=== PATIENT | female | born 1995 | race Caucasian/White ===

== ENCOUNTER 2017-06-01 21:23 | Emergency (ER) | payer MEDICAID, OTHER ==
[~2017-06-01] VITALS: Ht 157.5 cm; Wt 73.9 kg
[~2017-06-01 21:23] MED LIST: FERR325E14 PO; IBUP-974 PO; PREN-385 PO
[2017-06-01 21:32] VITALS: BP 126/71
--- NOTE | 2017-06-01 22:02 | NUR ---
PATIENT TO ER BED 6
--- NOTE | 2017-06-01 22:06 | NUR ---
PATIENT PRESENTS TO ED WITH mid upper back pain starting at 1600. Was seen at [facility] earlier and discharged; given Zofrant. 12 weeks; G-2 P-1. C/O urinary burning PT SKIN IS PINK/WARM/DRY; AAOX4 WITH EVEN AND STEADY GAIT; LUNGS CLEAR BL; HR EVEN AND REGULAR; PT DENIES ANY FEVER, CP, SOB, OR COUGH AT THIS TIME; PATIENT STATES PAIN OF 8/10 AT THIS TIME; VSS; PATIENT POSITIONED FOR COMFORT; HOB ELEVATED; BEDRAILS UP X2; BED DOWN. ER MD MADE AWARE OF PT STATUS.
[2017-06-01 22:20] LABS: APPEARANCE,URINE SL CLOUDY (CLEAR); BILIRUBIN,URINE NEGATIVE (NEGATIVE); BLOOD, URINE NEGATIVE (NEGATIVE); COLOR,URINE YELLOW (YELLOW); LEUKOCYTE ESTERASE ,URINE 1+ (NEGATIVE); NITRITE, URINE POSITIVE (NEGATIVE); UGLUCOSE NEGATIVE (NEGATIVE)
[2017-06-01 22:31] LABS: RBC,URINE 0-5 (RARE) /HPF (0-5)
[2017-06-01 23:02] VITALS: BP 126/71
== END 2017-06-01 23:02 | disposition home or self-care (01) ==
LOC: MED 21:23
DX: O23.41 Unspecified infection of urinary tract in pregnancy, first trimester (principal); Z3A.12 12 weeks gestation of pregnancy; Z79.899 Other long term (current) drug therapy
CPT/HCPCS: 81001; 81025; 87086; 99284

== ENCOUNTER 2017-09-09 17:35 | Observation (INO) | payer OTHER ==
[~2017-09-09] VITALS: Ht 157.5 cm; Wt 68.0 kg
[2017-09-09 17:58] VITALS: BP 109/65
== END 2017-09-09 20:35 | disposition home or self-care (01) ==
LOC: MLD 17:35
PROVIDERS: ADMIT Obstetrics & Gynecology; ATTEND Obstetrics & Gynecology
DX: O26.892 Other specified pregnancy related conditions, second trimester (principal); M54.9 Dorsalgia, unspecified; R19.00 Intra-abdominal and pelvic swelling, mass and lump, unspecified site; Z3A.26 26 weeks gestation of pregnancy
CPT/HCPCS: 76805; G0378; Q0092

== ENCOUNTER 2017-10-01 15:05 | Observation (INO) | payer OTHER ==
[~2017-10-01] VITALS: Ht 160 cm; Wt 73.5 kg
[~2017-10-01 15:05] MED LIST changes: -IBUP-974 PO
[2017-10-01 15:26] VITALS: BP 116/65
== END 2017-10-01 16:58 | disposition home or self-care (01) ==
LOC: MLD 15:05
PROVIDERS: ADMIT Obstetrics & Gynecology; ATTEND Obstetrics & Gynecology
DX: O36.8130 Decreased fetal movements, third trimester, not applicable or unspecified (principal); O62.9 Abnormality of forces of labor, unspecified; Z3A.29 29 weeks gestation of pregnancy
CPT/HCPCS: 59025; 76819; 81000; G0378; Q0092

== ENCOUNTER 2017-12-05 14:37 | Inpatient (IN) | payer OTHER ==
[~2017-12-05] VITALS: Ht 157.5 cm; Wt 72.6 kg
[2017-12-05 16:07] VITALS: BP 111/79
[2017-12-05] MEDS ORDERED: OXYTOCIN 20 UNITS in LACTATED RINGERS 1,000 ML IV SCH ×2 (17:59→20:10)
[2017-12-05] MEDS ORDERED: IBUPROFEN 800 MG TAB PO PRN (18:00)
[2017-12-05] MEDS ORDERED: CARBOPROST 250 MCG/ML AMP IM PRN (18:00)
[2017-12-05] MEDS ORDERED: METHYLERGONOVINE 0.2 MG/ML AMP IM PRN (18:00)
[2017-12-05] MEDS ORDERED: PROMETHAZINE 25 MG/ML VIAL IVP PRN (18:00)
[2017-12-05] MEDS ORDERED: MISOPROSTOL 25 MCG TAB VG SCH (18:00)
[2017-12-05] MEDS ORDERED: NALBUPHINE 10 MG/ML AMP IVP PRN (18:00)
[2017-12-05] MEDS ORDERED: OXYTOCIN 10 UNITS/ML VIAL IM ONE (18:00)
[2017-12-05 19:02] LABS: BASOPHILS # (AUTO) 0.1 K/uL (0.00-0.22); BASOPHILS % (AUTO) 0.9 % (0.0-2.0); EOSINOPHILS % (AUTO) 0.3 % (0.0-4.0); HEMATOCRIT 30.3 % (36-48); LYMPHOCYTES # (AUTO) 1.5 K/uL (2.5-16.5); LYMPHOCYTES % (AUTO) 25.2 % (20.5-51.1); MEAN CORPUSCULAR HEMOGLOBIN 21 pg (27-31); MEAN CORPUSCULAR HGB CONC 30 g/dL (33-37); MEAN CORPUSCULAR VOLUME 71.7 fL (80-94); MONOCYTES # (AUTO) 0.3 K/uL (0.8-1.0); MONOCYTES % (AUTO) 4.8 % (1.7-9.3); NEUTROPHILS % (AUTO) 68.8 % (42.2-75.2); PLATELET COUNT (AUTO) 198 K/uL (140-450); RED BLOOD CELL COUNT(AUTO) 4.22 MIL/uL (4.20-5.40); RED CELL DISTRIBUTION WIDTH 13.5 % (11.6-13.7); WHITE BLOOD COUNT (AUTO) 5.9 K/uL (4.5-11.0)
[2017-12-05 19:10] LABS: BILIRUBIN,URINE NEGATIVE (NEGATIVE); BLOOD, URINE TRACE-I (NEGATIVE); LEUKOCYTE ESTERASE ,URINE 3+ (NEGATIVE); NITRITE, URINE NEGATIVE (NEGATIVE); UGLUCOSE NEGATIVE (NEGATIVE)
[2017-12-05 19:15] LABS: ANION GAP 15.6 (8-16); CARBON DIOXIDE 22.2 mmol/L (21-32); CREATININE 0.6 mg/dL (0.6-1.3); POTASSIUM 3.8 mmol/L (3.5-5.1)
[2017-12-05 19:22] LABS: ALBUMIN 2.5 g/dL (3.4-5.0); TOTAL BILIRUBIN 0.3 mg/dL (0.0-1.0)
[2017-12-05 19:40] LABS: APPEARANCE,URINE CLOUDY (CLEAR); COLOR,URINE YELLOW (YELLOW)
[2017-12-05 19:47] LABS: RBC,URINE 3-10 (FEW) /HPF (0-5); WBC,URINE 16-25 (MOD) /HPF (0-5)
[2017-12-05] MEDS ORDERED: OXYTOCIN 10 UNITS/ML VIAL IM PRN (20:10)
[2017-12-05] MEDS: LACTATED RINGERS 1,000 ML IV SCH (23:52)
[2017-12-06] MEDS ORDERED: OXYTOCIN 10 UNITS/ML VIAL ONE (01:52)
[2017-12-06] MEDS: LACTATED RINGERS 1,000 ML IV SCH ×2 (06:43→11:03)
[2017-12-06] MEDS ORDERED: BUPIVACAINE 0.125%/NS PREMIX 250 ML EPI SCH (10:15)
--- NOTE | 2017-12-06 11:17 | NUR ---
PATIENT HAS BEEN SCREENED AND CATEGORIZED LOW NUTRITION RISK. PATIENT WILL BE SEEN WITHIN 7 DAYS OF ADMISSION. 12/12/[address]
[2017-12-06] MEDS ORDERED: AMPICILLIN 2,000 MG in NACL 0.9% 100 ML IV SCH (15:05)
[2017-12-06] MEDS ORDERED: AMPICILLIN 2,000 MG VIAL ONE (15:53)
[2017-12-06] MEDS ORDERED: CARBOPROST 250 MCG/ML AMP IM ONE (18:03)
[2017-12-06] MEDS ORDERED: METHYLERGONOVINE 0.2 MG/ML AMP ONE (18:03)
[2017-12-06] MEDS ORDERED: OXYTOCIN 10 UNITS/ML VIAL IM PRN (18:20)
[2017-12-06] MEDS ORDERED: MEASLES, MUMPS, AND RUBELLA 1 VIAL SQVAC PRN (18:20)
[2017-12-06] MEDS ORDERED: METHYLERGONOVINE 0.2 MG/ML AMP IM PRN (18:20)
[2017-12-06] MEDS ORDERED: BENZOCAINE/MENTHOL 20%-0.5% 60 GM CAN TP PRN (18:20)
[2017-12-06] MEDS ORDERED: TEMAZEPAM 15 MG CAP PO PRN (18:20)
[2017-12-06] MEDS ORDERED: HYDROcodone/APAP 5/325 MG 1 TAB TAB PO PRN (18:20)
[2017-12-06] MEDS ORDERED: SODIUM PHOSPHATE 118 ML ENEM RC PRN (18:20)
[2017-12-06] MEDS ORDERED: oxyCODONE/APAP 5/325 MG 1 TAB TAB PO PRN (18:20)
[2017-12-06] MEDS ORDERED: METHYLERGONOVINE 0.2 MG TAB PO PRN (18:20)
[2017-12-06] MEDS ORDERED: MISOPROSTOL 100 MCG TAB ONE (18:29)
[2017-12-06] MEDS ORDERED: MISOPROSTOL 100 MCG TAB RC SCH (18:30)
[2017-12-06] MEDS ORDERED: IBUPROFEN 800 MG TAB ONE (19:42)
[2017-12-06] MEDS ORDERED: PROMETHAZINE 25 MG/ML VIAL ONE (19:42)
[2017-12-06] MEDS ORDERED: DOCUSATE SOD/SENNA 50/8.6 MG 1 TAB PO SCH (21:00)
[2017-12-06 21:09] LABS: BASOPHILS # (AUTO) 0.1 K/uL (0.00-0.22); BASOPHILS % (AUTO) 0.5 % (0.0-2.0); EOSINOPHILS # (AUTO) 0.1 K/uL (0-0.4); EOSINOPHILS % (AUTO) 0.6 % (0.0-4.0); HEMATOCRIT 28.2 % (36-48); HEMOGLOBIN 8.6 g/dL (12.0-16.0); LYMPHOCYTES # (AUTO) 0.9 K/uL (2.5-16.5); LYMPHOCYTES % (AUTO) 5.8 % (20.5-51.1); MEAN CORPUSCULAR HEMOGLOBIN 22 pg (27-31); MEAN CORPUSCULAR HGB CONC 31 g/dL (33-37); MEAN CORPUSCULAR VOLUME 71.5 fL (80-94); MONOCYTES # (AUTO) 0.3 K/uL (0.8-1.0); NEUTROPHILS # (AUTO) 13.3 K/uL (1.8-7.7); NEUTROPHILS % (AUTO) 91.1 % (42.2-75.2); PLATELET COUNT (AUTO) 179 K/uL (140-450); RED BLOOD CELL COUNT(AUTO) 3.95 MIL/uL (4.20-5.40); RED CELL DISTRIBUTION WIDTH 13.4 % (11.6-13.7); WHITE BLOOD COUNT (AUTO) 14.7 K/uL (4.5-11.0)
[2017-12-06] MEDS ORDERED: DIPHENOXYLATE /ATROPINE 2.5 MG TAB PO PRN ×2 (23:50→23:55)
[2017-12-07] MEDS ORDERED: DIPHENOXYLATE /ATROPINE 2.5 MG TAB PO SCH
[2017-12-07 06:34] LABS: HEMATOCRIT 21.3 % (36-48)
[2017-12-07 08:01] LABS: HEMOGLOBIN 6.8 g/dL (12.0-16.0)
[2017-12-07] MEDS: FERROUS SULFATE 325 MG TABEC PO SCH ×2 (13:25→18:05)
[2017-12-07] MEDS ORDERED: DOCUSATE SOD/SENNA 50/8.6 MG 1 TAB PO SCH (21:00)
[2017-12-08] MEDS: FERROUS SULFATE 325 MG TABEC PO SCH (08:32)
[2017-12-08] MEDS ORDERED: IBUP-1842 PO (08:57)
== END 2017-12-08 12:10 | disposition home or self-care (01) | DRG 560 ==
LOC: MFCC 14:37 → OBSVTOIN 17:59 → MFCC 18:04
PROVIDERS: ADMIT Obstetrics & Gynecology; ATTEND Obstetrics & Gynecology
PROC: 10E0XZZ Delivery of Products of Conception, External Approach (ICD-10-PCS; principal; 2017-12-06)
PROC: 0KQM0ZZ Repair Perineum Muscle, Open Approach (ICD-10-PCS; 2017-12-06)
PROC: 3E0P7VZ Introduction of Hormone into Female Reproductive, Via Natural or Artificial Opening (ICD-10-PCS; 2017-12-06)
PROC: 10907ZC Drainage of Amniotic Fluid, Therapeutic from Products of Conception, Via Natural or Artificial Opening (ICD-10-PCS; 2017-12-06)
PROC: 3E033VJ Introduction of Other Hormone into Peripheral Vein, Percutaneous Approach (ICD-10-PCS; 2017-12-06)
PROC: 3E0R3BZ Introduction of Anesthetic Agent into Spinal Canal, Percutaneous Approach (ICD-10-PCS; 2017-12-06)
PROC: 00HU33Z Insertion of Infusion Device into Spinal Canal, Percutaneous Approach (ICD-10-PCS; 2017-12-06)
PROC: 3E0234Z Introduction of Serum, Toxoid and Vaccine into Muscle, Percutaneous Approach (ICD-10-PCS; 2017-12-07)
DX: O99.02 Anemia complicating childbirth (principal); D64.9 Anemia, unspecified; O70.1 Second degree perineal laceration during delivery; Z23 Encounter for immunization; Z37.0 Single live birth; Z3A.39 39 weeks gestation of pregnancy
CPT/HCPCS: G0378 ×3; 36415; 51702; 59200; 59409; 76819; 80053; 81001; 85018; 85025; 86592; 86886; 86900; 86901; 87086; 90715; J0290; J2210; J2300; J2550; J2590; J3490; J7120; Q0092

== ENCOUNTER 2021-02-28 07:42 | Emergency (ER) | payer OTHER ==
[~2021-02-28] VITALS: Ht 157.5 cm; Wt 90.7 kg
[~2021-02-28 07:42] MED LIST changes: +IBUP-1842 PO
[2021-02-28 07:49] VITALS: BP 153/76
[2021-02-28] MEDS ORDERED: ONDANSETRON 4 MG ODT PO ONE (08:00)
[2021-02-28] MEDS ORDERED: ALUMINUM HYD/MAG/SIMETHICONE 30 ML UDC PO ONE (08:00)
[2021-02-28 08:36] LABS: BASOPHILS % (AUTO) 0.2 % (0.0-2.0); EOSINOPHILS % (AUTO) 0.5 % (0.0-4.0); HEMOGLOBIN 13.2 g/dL (12.0-16.0); LYMPHOCYTES # (AUTO) 1.6 K/uL (2.5-16.5); LYMPHOCYTES % (AUTO) 22.8 % (20.5-51.1); MEAN CORPUSCULAR HEMOGLOBIN 27 pg (27-31); MEAN CORPUSCULAR HGB CONC 34 g/dL (33-37); MEAN CORPUSCULAR VOLUME 80.1 fL (80-94); MONOCYTES # (AUTO) 0.4 K/uL (0.8-1.0); NEUTROPHILS % (AUTO) 70.5 % (42.2-75.2); PLATELET COUNT (AUTO) 210 K/uL (140-450); RED BLOOD CELL COUNT(AUTO) 4.86 MIL/uL (4.20-5.40); RED CELL DISTRIBUTION WIDTH 13.8 % (11.6-13.7); WHITE BLOOD COUNT (AUTO) 7.1 K/uL (4.8-10.8)
[2021-02-28 09:03] LABS: ALBUMIN 3.7 g/dL (3.4-5.0); ANION GAP 14.6 (8-16); CARBON DIOXIDE 21.8 mmol/L (21-32); CREATININE 0.8 mg/dL (0.6-1.3); POTASSIUM 3.4 mmol/L (3.5-5.1); TOTAL BILIRUBIN 0.7 mg/dL (0.0-1.0)
[2021-02-28 09:08] LABS: BILIRUBIN,URINE NEGATIVE (NEGATIVE); BLOOD, URINE 3+ (NEGATIVE); COLOR,URINE YELLOW (YELLOW); LEUKOCYTE ESTERASE ,URINE NEGATIVE (NEGATIVE); NITRITE, URINE NEGATIVE (NEGATIVE); UGLUCOSE NEGATIVE (NEGATIVE)
[2021-02-28 09:10] LABS: APPEARANCE,URINE CLOUDY (CLEAR)
[2021-02-28 09:30] LABS: RBC,URINE 11-20 (MOD) /HPF (0-5); WBC,URINE 0-5 /HPF (0-5)
[2021-02-28 10:07] VITALS: BP 153/76
== END 2021-02-28 10:00 | disposition home or self-care (01) ==
LOC: MED 07:42
DX: R10.13 Epigastric pain (principal); R11.2 Nausea with vomiting, unspecified; R74.01 Elevation of levels of liver transaminase levels; Z79.899 Other long term (current) drug therapy
CPT/HCPCS: 36415; 71045; 80053; 81001; 81025; 83690; 85025; 93005; 99285; Q0162

== ENCOUNTER 2021-12-12 21:17 | Emergency (ER) | payer OTHER ==
[~2021-12-12] VITALS: Ht 157.5 cm; Wt 91.2 kg
[2021-12-12 21:27] VITALS: BP 137/85
[2021-12-12 22:14] VITALS: BP 137/85
== END 2021-12-12 22:14 | disposition home or self-care (01) ==
LOC: MED 21:17
DX: K64.8 Other hemorrhoids (principal); Z79.899 Other long term (current) drug therapy
CPT/HCPCS: 99281